=== PATIENT | female | born 1985 | race African-American/Black ===

== ENCOUNTER 2019-05-15 07:14 | Emergency (ER) | payer MEDICARE, MEDICAID ==
[~2019-05-15] VITALS: Ht 162.6 cm; Wt 56.0 kg
[2019-05-15 07:41] VITALS: BP 110/82
== END 2019-05-15 12:20 | disposition home or self-care (01) ==
LOC: EDBD 07:14 → ER 07:14
DX: R45.1 Restlessness and agitation (principal); R41.82 Altered mental status, unspecified
CPT/HCPCS: 99284

== ENCOUNTER 2022-10-20 10:40 | Emergency (ER) | payer MEDICAID, MEDICARE ==
[~2022-10-20] VITALS: Ht 167.6 cm; Wt 65.0 kg
[2022-10-20] MEDS ORDERED: KETOROLAC 60MG/2ML VIAL IM STA (12:51)
[2022-10-20] MEDS ORDERED: PENICILLIN G BENZATHINE 1,200,000 UNITS/2ML SYR IM ONE (13:00)
[2022-10-20 13:08] VITALS: BP 108/71
== END 2022-10-20 13:48 | disposition home or self-care (01) ==
LOC: ER 10:40
DX: J02.9 Acute pharyngitis, unspecified (principal); F15.10 Other stimulant abuse, uncomplicated
CPT/HCPCS: 96372; 99284; J0561; J1885

== ENCOUNTER 2022-10-27 09:19 | Emergency (ER) | payer MEDICAID ==
[~2022-10-27] VITALS: Ht 157.5 cm; Wt 50.0 kg
[2022-10-27] MEDS ORDERED: KETOROLAC 60MG/2ML VIAL IM ONE (10:30)
[2022-10-27] MEDS ORDERED: CETI-338 PO (11:07)
[2022-10-27] MEDS ORDERED: NAPR375T5 MT (11:07)
[2022-10-27 11:08] VITALS: BP 123/87
== END 2022-10-27 11:41 | disposition home or self-care (01) ==
LOC: ER 09:19
DX: J02.9 Acute pharyngitis, unspecified (principal); F15.10 Other stimulant abuse, uncomplicated
CPT/HCPCS: 81025; 96372; 99283; J1885